=== PATIENT | female | born 2000 | race African-American/Black ===

== ENCOUNTER 2023-01-15 23:36 | Inpatient (IN) ==
[2023-01-15] MEDS ORDERED: LACTATED RINGERS 1,000 ML IV SCH (23:45)
[2023-01-15] MEDS ORDERED: METHYLERGONOVINE 0.2 MG/1 ML AMP IM PRN (23:50)
[2023-01-15] MEDS ORDERED: ONDANSETRON 4 MG/2 ML VIAL IV PRN (23:50)
[2023-01-15] MEDS ORDERED: miSOPROStoL 200 MCG TABLET RECTAL PRN (23:50)
[2023-01-15] MEDS ORDERED: TRANEXAMIC ACID 1,000 MG in SODIUM CHLORIDE 0.9% 100 ML IV PRN (23:50)
[2023-01-15] MEDS ORDERED: CARBOPROST TROMETHAMINE 250 MCG/ML AMP IM PRN (23:50)
[2023-01-15] MEDS ORDERED: OXYTOCIN/LR 20 UNIT/1,000 ML BAG IV ONE (23:50)
[2023-01-16 01:10] LABS: Basophils % 0.2 % (0.0-0.8); Eosinophils # 0.1 10*3/uL (0.0-0.87); Eosinophils % 0.6 % (0.00-10.9); Hematocrit 33.5 VOL% (35.7-47.0); Immature Granulocytes % 0.6 %; Immature Granulocytes Absolute 0.07 #; Lymphocytes # 1.8 10*3/uL (1.4-4.0); Mean Corpuscular HGB Conc 32.8 GM/DL (32-36); Mean Corpuscular Volume 87.2 FL (87-102); Mean Platelet Volume 11.8 FL (9.6-12.0); Monocytes % 8.4 % (1.7-12.7); Neutrophils % 75.2 % (38.7-73.9); Platelet Count 240 T/CUMM (130-400); Red Blood Count 3.84 MC/CUMM (3.8-5.5); White Blood Count 12.17 T/CUMM (4-12)
[2023-01-16 01:24] LABS: Alanine Aminotransferase 25 U/L (13-56); Albumin 2.6 G/DL (3.4-5.0); Alkaline Phosphatase 150 U/L (45-117); Aspartate Amino Transferase 22 U/L (0-37); Bilirubin,Total < 0.39 MG/DL (0.20-1.00); Blood Urea Nitrogen 7 MG/DL (7-18); Calcium 8.9 MG/DL (8.5-10.1); Carbon Dioxide 22 MMOL/L (21-32); Chloride 108 MMOL/L (98-107); Glucose 80 MG/DL (74-106); Osmolality,Calculated 273.5 MOS/KG (273-304); Potassium 3.5 MMOL/L (3.5-5.1); Sodium 139 MMOL/L (136-145); Uric Acid 5.1 MG/DL (2.6-6.0)
[2023-01-16 02:56] LABS: HIV Antigen/Antibody Result Nonreactive (Nonreactive); Hepatitis B Surface Ag Result Non-Reactive (NonReactive); Rubella Antibody IgG Result Reactive (NonReactive)
[2023-01-16] MEDS ORDERED: TRANEXAMIC ACID 1,000 MG/10 ML VIAL ONE ×2 (04:23→16:02)
[2023-01-16] MEDS ORDERED: METHYLERGONOVINE 0.2 MG/1 ML AMP ONE ×2 (04:23→16:03)
[2023-01-16] MEDS ORDERED: miSOPROStoL 200 MCG TABLET ONE ×2 (04:23→16:02)
[2023-01-16] MEDS ORDERED: CARBOPROST TROMETHAMINE 250 MCG/ML AMP IM ONE ×2 (04:23→16:03)
[2023-01-16] MEDS ORDERED: SODIUM CHLORIDE 0.9% 0 ML IV ONE ×2 (04:23→16:02)
[2023-01-16] MEDS ORDERED: MEPERIDINE 50 MG/1 ML VIAL IV PRN (04:36)
[2023-01-16] MEDS: BUTORPHANOL 2 MG/ML VIAL IV PRN ×2 (04:56→09:13)
[2023-01-16] MEDS ORDERED: OXYTOCIN 10 UNIT/ML VIAL IM ONE (09:31)
[2023-01-16] MEDS ORDERED: OXYTOCIN/LR 30 UNIT/1,000 ML BAG IV ONE (09:31)
[2023-01-16] MEDS ORDERED: FAMOTIDINE 20 MG/2 ML VIAL IV ONE (09:33)
[2023-01-16] MEDS ORDERED: ceFAZolin 2,000 MG/50 ML DUPLEX IV ONE (09:33)
[2023-01-16] MEDS ORDERED: CITRIC ACID/SODIUM CITRATE 30 ML UDCUP PO ONE (09:33)
[2023-01-16] MEDS ORDERED: PHENYLEPHRINE 1 MG/10 ML SYRINGE IV ONE (15:15)
[2023-01-16] MEDS ORDERED: ONDANSETRON 4 MG/2 ML VIAL ONE (15:15)
[2023-01-16] MEDS ORDERED: buprenorphine HCL 0.3 MG/ML VIAL ONE (15:16)
[2023-01-16] MEDS ORDERED: DEXAMETHASONE 4 MG/1 ML VIAL ONE ×2 (15:17→15:24)
[2023-01-16] MEDS ORDERED: KETOROLAC 30 MG/1 ML VIAL ONE (15:17)
[2023-01-16] MEDS ORDERED: ACETAMINOPHEN INJ 1,000 MG/100 ML VIAL IV ONE (15:17)
[2023-01-16 16:59] LABS: Cord Arterial Blood HCO3 18.4 MMOL/L
[2023-01-16 17:02] LABS: Cord Venous Blood PO2 < 17
[2023-01-16] MEDS ORDERED: SIMETHICONE CHEW 80 MG TABLET PO PRN (17:17)
[2023-01-16] MEDS ORDERED: ACETAMINOPHEN 325 MG TABLET PO PRN (17:17)
[2023-01-16] MEDS ORDERED: RHO(D) IMMUNE GLOBULIN 300 MCG SYRINGE IM ONE (17:17)
[2023-01-16] MEDS ORDERED: ONDANSETRON 4 MG/2 ML VIAL IV PRN (17:17)
[2023-01-16] MEDS ORDERED: OXYTOCIN/LR 20 UNIT/1,000 ML BAG IV ONE (17:17)
[2023-01-16] MEDS ORDERED: IBUPROFEN 800 MG TABLET PO PRN (17:17)
[2023-01-16] MEDS ORDERED: LACTATED RINGERS 1,000 ML IV SCH (17:30)
[2023-01-16] MEDS ORDERED: PROMETHAZINE 25 MG/1 ML VIAL IM ONE (18:16)
[2023-01-16] MEDS: ACETAMINOPHEN 500 MG TABLET PO SCH ×2 (23:03→23:05)
[2023-01-16] MEDS: KETOROLAC 30 MG/1 ML VIAL IV SCH (23:04)
[2023-01-17 04:59] LABS: Basophils % 0.1 % (0.0-0.8); Hemoglobin 10.3 GM/DL (12.0-16.0); Immature Granulocytes % 0.7 %; Immature Granulocytes Absolute 0.17 #; Lymphocytes # 1.2 10*3/uL (1.4-4.0); Lymphocytes % 5.1 % (21.3-54.2); Mean Corpuscular HGB Conc 33.2 GM/DL (32-36); Mean Corpuscular Volume 86.4 FL (87-102); Mean Platelet Volume 11.1 FL (9.6-12.0); Monocytes # 1.1 10*3/uL (0.11-0.8); Neutrophils % 89.1 % (38.7-73.9); Platelet Count 250 T/CUMM (130-400); Red Blood Count 3.59 MC/CUMM (3.8-5.5); Red Cell Distribution Width 13.9 % (9.3-17.3); White Blood Count 22.89 T/CUMM (4-12)
[2023-01-17 05:28] LABS: Band Neutrophils 2 % (0-10); Lymphocytes 4 % (20-55); Polychromasia Slight; Total Cells Counted 100
[2023-01-17 05:29] LABS: Microcytosis Slight; Platelet Estimate Normal
[2023-01-17] MEDS: ACETAMINOPHEN 500 MG TABLET PO SCH (05:48)
[2023-01-17] MEDS: KETOROLAC 30 MG/1 ML VIAL IV SCH ×2 (05:48→10:41)
[2023-01-17] MEDS: MULTIVITAMIN (PRENATAL) TABLET PO SCH (08:56)
[2023-01-17] MEDS: MAGNESIUM HYDROXIDE SUSP 30 ML UDCUP PO PRN ×2 (08:56→21:18)
[2023-01-17] MEDS: DOCUSATE SODIUM 100 MG CAPSULE PO SCH ×2 (08:57→21:18)
[2023-01-18] MEDS: MULTIVITAMIN (PRENATAL) TABLET PO SCH (09:21)
[2023-01-18] MEDS: DOCUSATE SODIUM 100 MG CAPSULE PO SCH (09:21)
[2023-01-18 12:06] VITALS: BP 105/66
== END 2023-01-18 12:15 | disposition home or self-care (01) | DRG 540 ==
LOC: N.LD 23:36 → N.LAB 23:36 → N.LD 23:43 → N.OB 01-16 20:40
PROVIDERS: ADMIT Obstetrics & Gynecology; ATTEND Obstetrics & Gynecology
PROC: LDCSECT (ICD-10-PCS; 2023-01-16 15:30)